=== PATIENT | female | born 1970 | race Two or more races ===

== ENCOUNTER → 2017-07-08 | Outpatient (CLI) | payer BC ==
--- NOTE | 2017-07-09 00:55 | ECWPNPC ---
PATIENT NAME: WILFREDO AMBROSE : 1970 GENDER: FEMALE VISIT DATE: 07/08/2017 DISCHARGE DATE: 07/08/17 1051 VISIT LOCKED DATE TIME: PHYSICIAN: LOEG SHERIDAN RESOURCE: OLEG SHERIDAN HISTORY OF PRESENT ILLNESS NEW PATIENT CONSULT: 46 Y/O FEMALE REFERRED BY DR. PALMER FOR PERSISTENT RIGHT BIKINI LINE INCISIONAL PAIN SINCE HYSTERECTOMY AUGUST 2016.DESCRIBES PAIN INTERMITTENT BURNING AND STABBING PAIN.PAIN IS AGGREVATED BY BENDING OR GOING TO STANDING POSITION AFTER SITTING.PATIENT HAS HAD ADVERSE RECTIONS TO PAIN MEDICATION AND WOULD LIKE TO AVOID MEDICATION TRIALS.REPORTS 15#WEIGHT GAIN SINCE SURGERY.REPORTS POOR ACTIVITY TOLERANCE DUE TO PAIN.REPORTS NORMAL BOWEL MOVEMENTS AND URINATION.NO RECENT FEVER OR ILLNESS. WHEN DID YOUR PAIN FIRST START? . BRIEFLY DESCRIBE HOW YOUR PAIN STARTED? . HOW DOES YOUR PAIN CHANGE WITH TIME? . DOES YOUR PAIN AWAKEN YOU FROM SLEEP? . HOW MANY HOURS OF SLEEP DO YOU NORMALLY GET? . ANY DIAGNOSTIC TESTING? . FACILITY WHERE TESTS WERE DONE? ____. PAIN TREATMENT TREATMENT YES CANCER HAVE YOU EVER HAD ANY TYPE OF CANCER?NO NO. PAIN SCREENING: PATIENT HAS A COMPLAINT OF ACUTE OR CHRONIC PAIN :YES FALL RISK SCREENING: SCREENING :NO FALLS IN THE PAST YEAR FRY INVENTORY: QUESTIONNAIRE ASSESSEDTBD SCORE VALUE CALCULATED TBD CURRENT MEDICATIONS TAKING HYDROCHLOROTHIAZIDE 25 MG TABLET 1 TABLET IN THE MORNING ORALLY ONCE A DAY TAKING LEXAPRO 5 MG TABLET 2 TABLETS ORALLY ONCE A DAY TAKING CALCIUM + D3 600-800 MG-UNIT TABLET 1 TABLET WITH A MEAL ORALLY ONCE A DAY TAKING ESTRADIOL 2 MG TABLET 1 TABLET ORALLY ONCE A DAY TAKING LISINOPRIL 5 MG TABLET 1 TABLET ORALLY ONCE A DAY TAKING TYLENOL 325 MG TABLET 2 TABLETS NEEDED ORALLY EVERY 6 HRS TAKING IBUPROFEN 200 MG TABLET 1 TABLET WITH FOOD OR MILK NEEDED ORALLY EVERY 6 HRS MEDICATION LIST REVIEWED AND RECONCILED WITH THE PATIENT PAST MEDICAL HISTORY HTN ANXIETY ALLERGIES VICODIN: HALLUCINATION PERCOCET: HALLUCINATIONS SURGICAL HISTORY TONSILS 2006 ABDOMINAL HYSTERECTOMY 08/2016 FAMILY HISTORY FATHER: ALIVE, DIAGNOSED WITH HYPERTENSION, CANCER, OTHER MOTHER: ALIVE SIBLINGS: , DIAGNOSED WITH HEART DISEASE SON(S): ALIVE DAUGHTER(S): ALIVE FATHER KIDNEY FAILURE-DIALYSIS BROTHER HAD CHF AND WENT SEPTIC AT 49. 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 DIET: REGULAR. EXERCISE: DAILY, WALKS "SHATEVER I CAN". MARITAL STATUS: . OTHERS AT HOME: SPOUSE, CHILDREN. PETS: DOG AND 2 CATS. SIKHISM SIKHISM CONGREGATIONAL LANGUAGE LANGUAGES SPOKEN:[place] EDUCATION LEVEL OF EDUCATION:HIGH SCHOOL PAIN CLINIC PFS, CLERGY, PUBLIC HEALTH REFERRALS PFS REFERRAL NEEDED?NO CLERGY REFERRAL NEEDED?NO PUBLIC HEALTH REFERRAL NEEDED?NO WAS THE PROVIDER NOTIFIED OF ANY PERTINENT INFO?NO HAS THE PATIENT BEEN EDUCATED REGARDING HIS/HER PLAN OF CARE?YES HAS THE PATIENT BEEN EDUCATED REGARDING PAIN, THE RISK FOR PAIN, THE IMPORTANCE OF EFFECTIVE PAIN MANAGEMENT, AND THE PAIN ASSESSMENT PROCESS?YES PATIENT: ____. ADVANCE DIRECTIVES HEALTH CARE PROXY?NO HOUSING: OWNS HOME. HOSPITALIZATION/MAJOR DIAGNOSTIC PROCEDURE CHILD [id number] REVIEW OF SYSTEMS REVIEWED BY: PROVIDER: OLEG ALVARENGA . CONSTITUTIONAL: ANY CHANGE IN YOUR MEDICAL CONDITION? NO . CHILLS NO . FEVER NO . INFECTION: DO YOU HAVE NEW INFECTIONS? NO . DO YOU HAVE HISTORY OF MRSA? NO . MUSCULOSKELETAL: ANY NEW PATTERNS OF PAIN OR NUMBNESS? NO . SYTEMIC LUPUS NO . GASTROENTEROLOGY: ANY NEW CHANGE IN BOWEL CONTROL? NO . BARRETTS ESOPHAGUS NO . CIRRHOSIS NO . HEPATITIS NO . LIVER FAILURE NO . ACID REFLUX NO . UNEXPLAINED WEIGHT LOSS NO . GENITOURINARY: ANY NEW CHANGE IN BLADDER CONTROL? NO . IS THERE A CHANCE YOU COULD BE ? NO . HEMATOLOGY/LYMPH: DO YOU TAKE ANY BLOOD THINNERS? (FOR EXAMPLE- COUMADIN, PLAVIX, AGGRENOX, PLATEL, PRADAXA, OR XARELTO) NO . WHEN WAS YOUR LAST DOSE? DATE: TIME: . LOW PLATELET COUNT NO . SICKLE CELL DISEASE NO . VON WILLIEBRANDS NO . FACTOR V LEIDEN NO . THALLASEMIA NO . ANEMIA NO . EASY BRUISING NO . NEUROLOGY: HAVE YOU FALLEN IN THE PAST 6 MONTHS? NO . ANY NEW EXTREMITY NUMBNESS OR WEAKNESS? NO . HEAD INJURY NO . DEMENTIA NO . CEREBRAL PALSY NO . MULTIPLE SCLEROSIS NO . DIZZINESS NO . HEADACHE NO . STROKES NO . VERTIGO NO . CARDIOLOGY: DO YOU HAVE A PACEMAKER OR DEFIBRILLATOR? NO . ANGINA NO . HEART ATTACK NO . HEART SURGERY NO . CONGESTIVE HEART FAILURE/FLUID OVERLOAD NO . CHEST PAIN NO . HIGH BLOOD PRESSURE NO . IRREGULAR HEART BEAT NO . RESPIRATORY: HAVE YOU BEEN SICK IN THE PAST WEEK? NO . FEVER NO . FLU LIKE SYMPTOMS? NO . CPAP NO . BYPAP NO . ASTHMA NO . EMPHYSEMA NO . CHRONIC LUNG DISEASES NO . SHORTNESS OF BREATH ON EXERTION NO . DO YOU USE ANY TYPE OF TOBACCO (SMOKE, SMOKELESS, CHEW)? NO . COUGH NO . SNORING NO . INTEGUMENTARY: DO YOU HAVE ANY RASHES OR OPEN SORES? NO . ALLERGIC/IMMUNO: ARE YOU ALLERGIC TO SHELLFISH OR IV DYE? NO . ANY NEW ALLERGIES? NO . PSYCHIATRIC: DO YOU HAVE THOUGHTS OF HURTING YOURSELF OR SOMEONE ELSE? NO . ARE YOU ABUSED, NEGLECTED, OR IN AN UNSAFE ENVIRONMENT? NO . ENDOCRINOLOGY: ARE YOU DIABETIC? NO . THYROID DISORDER NO . OTHER: DO YOU NEED ANY PRESCRIPTIONS? NO . IF YES, PLEASE LIST: ____ . ANY NEW PROBLEMS WITH YOUR MEDICATIONS? NO . WHEN DID YOU LAST EAT? ____ . WHEN DID YOU LAST DRINK? ____ . WHAT DID YOU LAST DRINK? ____ . NAME OF PERSON DRIVING YOU HOME? ____ . DO YOU HAVE ANY OTHER QUESTIONS OR CONCERNS NO . VITAL SIGNS WT 229.2 LBS, HT 62 IN, BMI 41.92 INDEX, BP 162/93 MM HG, HR 70 /MIN, RR 16 /MIN, TEMP 97.9 F, OXYGEN SAT % 97%, NA INITIALS SC 10:04. EXAMINATION GENERAL EXAMINATION: GENERAL APPEARANCE:COMFORTABLE. PSYCHAFFECT NORMAL. NECK:TRACHEA MIDLINE. NO CERVICAL OR SUPRACLAVICULAR LYMPHADENOPATHY NOTED. LUNGS:LUNG OSBORN ARE CLEAR TO AUSCULTATION BILATERALLY. GOOD MOVEMENT OF AIR. HEART:S1, S2 IN A REGULAR RATE AND RHYTHM. NO SIGNIFICANT MURMURS, RUBS OR GALLOPS NOTED. ABDOMEN:OBESE,SOFT NONTENDER X4 QUADS. BIKINI LINE INCION-WELL HEALED.RIGHT SIDE OF THIS INCISION TOWARDS MIDLINE MILDLY TENDER WITH DEEP PALPATION.. 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 PROCEDURE CODES FA211 ESTABILISHED PATIENT [facility] FACILITY CHARGE DISPOSITION & COMMUNICATION FOLLOW UP 2WK POST (REASON: SCAR NEUROMA INJECTION/ABDOMINAL) ELECTRONICALLY SIGNED BY COLETTE BEAL ON 07/08/2017 AT 12:58 PM EDT DISCLAIMER : THIS IS A VISIT SUMMARY EXTRACTED FROM THE [employer] CHART. IT IS NOT A COPY OF THE [employer] PROGRESS NOTE. BONNIE
== END ==
LOC: M PAIN 09:45
PROVIDERS: ATTEND Nurse Practitioner Family
DX: G89.29 Other chronic pain (principal); D36.15 Benign neoplasm of peripheral nerves and autonomic nervous system of abdomen; I10 Essential (primary) hypertension; F41.9 Anxiety disorder, unspecified; Z88.5 Allergy status to narcotic agent; Z79.899 Other long term (current) drug therapy

== ENCOUNTER → 2017-07-29 | Outpatient (CLI) | payer BC ==
[~2017-07-29] MED LIST: BUPIVACAINE HCL 0.25% 10 ML VIAL As Ordered ONE; BUPIVACAINE HCL 0.25% 30 ML VIAL As Ordered ONE; TRIAMCINOLONE ACETONIDE SUSP 40 MG/ML VIAL (J3301) As Ordered ONE
--- NOTE | 2017-08-04 23:49 | ECWPNPC ---
PATIENT NAME: WILFREDO AMBROSE : 1970 GENDER: FEMALE VISIT DATE: 07/29/2017 DISCHARGE DATE: 07/29/17 1408 VISIT LOCKED DATE TIME: PHYSICIAN: CHERYL CLEMENT RESOURCE: CHERYL CLEMENT REASON FOR APPOINTMENT 1. SCAR NEUROMA INJECTION/ABDOMINAL CURRENT MEDICATIONS TAKING HYDROCHLOROTHIAZIDE 25 MG TABLET 1 TABLET IN THE MORNING ORALLY ONCE A DAY, NOTES: 07-29-17499 TAKING LEXAPRO 5 MG TABLET 2 TABLETS ORALLY ONCE A DAY, NOTES: 07-29-17499 TAKING CALCIUM + D3 600-800 MG-UNIT TABLET 1 TABLET WITH A MEAL ORALLY ONCE A DAY, NOTES: 07-28-17 TAKING ESTRADIOL 2 MG TABLET 1 TABLET ORALLY ONCE A DAY, NOTES: 07-28-17 TAKING LISINOPRIL 5 MG TABLET 1 TABLET ORALLY ONCE A DAY, NOTES: [id number] TAKING TYLENOL 325 MG TABLET 2 TABLETS NEEDED ORALLY EVERY 6 HRS, NOTES: NONE TAKING IBUPROFEN 200 MG TABLET 1 TABLET WITH FOOD OR MILK NEEDED ORALLY EVERY 6 HRS, NOTES: NONE MEDICATION LIST REVIEWED AND RECONCILED WITH THE PATIENT PAST MEDICAL HISTORY HTN ANXIETY ALLERGIES VICODIN: HALLUCINATION PERCOCET: HALLUCINATIONS SOCIAL HISTORY GENERAL: TOBACCO USE ARE YOU A:NONSMOKER CAFFEINE CAFFEINE USE?NO OCCASIONAL SODA WITH CAFFEINE 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 DIET: REGULAR. EXERCISE: DAILY, WALKS "SHATEVER I CAN". MARITAL STATUS: . OTHERS AT HOME: SPOUSE, CHILDREN. PETS: DOG AND 2 CATS. LATTER-DAY LATTER-DAY LATTER DAY LANGUAGE LANGUAGES SPOKEN:[place] EDUCATION LEVEL OF EDUCATION:HIGH SCHOOL PAIN CLINIC PFS, CLERGY, PUBLIC HEALTH REFERRALS PFS REFERRAL NEEDED?NO CLERGY REFERRAL NEEDED?NO PUBLIC HEALTH REFERRAL NEEDED?NO WAS THE PROVIDER NOTIFIED OF ANY PERTINENT INFO?NO HAS THE PATIENT BEEN EDUCATED REGARDING HIS/HER PLAN OF CARE?YES HAS THE PATIENT BEEN EDUCATED REGARDING PAIN, THE RISK FOR PAIN, THE IMPORTANCE OF EFFECTIVE PAIN MANAGEMENT, AND THE PAIN ASSESSMENT PROCESS?YES PATIENT: ____. ADVANCE DIRECTIVES HEALTH CARE PROXY?NO HOUSING: OWNS HOME. VITAL SIGNS WT 227 LBS, HT 62 IN, BMI 41.51 INDEX, BP 146/89 MM HG, HR 66 /MIN, RR 16 /MIN, TEMP 97.5 F, OXYGEN SAT % 97%, NA INITIALS SC 11:25, REVIEWED BY: BOBBI. ASSESSMENTS SCAR CONDITIONS AND FIBROSIS OF SKIN - L90.5 (PRIMARY) TREATMENT OTHERS NOTES: PRE PROCEDURE DIAGNOSIS: SCAR NEUROMA AT RIGHT LOWER ABDOMINAL AREA POST PROCEDURE DIAGNOSIS: SCAR NEUROMA AT RIGHT LOWER ABDOMINAL AREA PROCEDURE: INJECTION AT THE RIGHT LOWER ABDOMINAL AREA SCAR SURGEON: DR. CHERYL CLEMENT. BUILDING SERVICES ENGINEER: NONE. ANESTHESIA: LOCAL. PRE PROCEDURE NOTE THE PATIENT HAS A HISTORY OF CHRONIC PAIN AT THE RIGHT LOWER ABDOMINAL AREA. I EVALUATED THE PATIENT AND REVIEWED THE CHART. I WENT OVER THE RISKS, ALTERNATIVES, AND BENEFITS ASSOCIATED WITH THIS PROCEDURE. THE PATIENT WOULD LIKE TO PROCEED AND GIVE CONSENT TO PERFORMED THE PROCEDURE. THE PATIENT DENIES UNEXPLAINABLE WEIGHT LOSS, FEVER, CHILLS, OR NEW CHANGES IN URINARY OR BOWEL CONTROL. DESCRIPTION OF PROCEDURE THE PATIENT WAS BROUGHT TO THE PROCEDURE ROOM AND PLACED IN THE SUPINE POSITION. THE AREA WAS CLEANED WITH CHLOROPREP. THE PROCEDURE WAS DONE USING ASEPTIC STERILE TECHNIQUE. I CHECKED LATERALITY AND THE LEVEL WHERE THE PROCEDURE WAS GOING TO BE PERFORMED WITH THE PATIENT AND THE SUPPORTING STAFF AT THE MOMENT OF THE TIME OUT IN THE PROCEDURE ROOM. USING A 25-GAUGE NEEDLE, RIGHT LOWER ABDOMINAL AREA AT THE SCAR AREA WITH A TOTAL OF 40 ML OF BUPIVACAINE 0.25% AND KENALOG 40 MG. THERE WAS NO EVIDENCE OF BLOOD, PARESTHESIA OR CEREBROSPINAL FLUID DURING THE PROCEDURE. THE PATIENT WAS SENT TO THE RECOVERY ROOM. THE PATIENT WAS MOVING THE EXTREMITIES AND DOING WELL. THERE WAS NO COMPLICATION DURING THE PROCEDURE. POST PROCEDURE NOTE THE PATIENT WILL BE SEEN IN A FOLLOW UP IN THE NEXT FEW WEEKS. INSTRUCTIONS WERE GIVEN, QUESTIONS WERE ANSWERED, AND THE PATIENT EXPRESSED UNDERSTANDING AND AGREES WITH THE PLAN.I, TWILA PHAM, DOCUMENTED THE ABOVE INFORMATION ACTING A SCRIBE FOR DR. CLEMENT. I HAVE REVIEWED THE ABOVE DOCUMENT, WRITTEN BY TWILA BLACKMON AND I VERIFY THAT IT IS ACCURATE. PROCEDURE CODES 98524 INJECT SKIN LESIONS </W 7, MODIFIERS: RT DISPOSITION & COMMUNICATION FOLLOW UP 3 WEEKS ELECTRONICALLY SIGNED BY CHERYL CLEMENT MD ON 08/04/2017 AT 01:33 PM EDT DISCLAIMER : THIS IS A VISIT SUMMARY EXTRACTED FROM THE [employer] CHART. IT IS NOT A COPY OF THE [employer] PROGRESS NOTE. [facility]
== END | disposition home or self-care (01) ==
LOC: M PAIN 11:30
PROVIDERS: ATTEND Anesthesiology
DX: G89.29 Other chronic pain (principal); L90.5 Scar conditions and fibrosis of skin; I10 Essential (primary) hypertension; F41.9 Anxiety disorder, unspecified; Z79.899 Other long term (current) drug therapy; Z88.5 Allergy status to narcotic agent
CPT/HCPCS: 11900; J3301

== ENCOUNTER → 2017-08-26 | Outpatient (CLI) | payer BC ==
--- NOTE | 2017-09-11 00:58 | ECWPNPC ---
PATIENT NAME: WILFREDO AMBROSE : 1970 GENDER: FEMALE VISIT DATE: 08/26/2017 DISCHARGE DATE: 08/26/17 1023 VISIT LOCKED DATE TIME: PHYSICIAN: OLEG SHERIDAN RESOURCE: OLEG SHERIDAN REASON FOR APPOINTMENT 1. POST PROC HISTORY OF PRESENT ILLNESS HISTORY OF PRESENT ILLNESS: HERE FOR POST PROCEDURE F/U.HAD RIGHT LOWER QUADRANT SCAR TPI ON 07-29-17.REPORTS IMPROVEMENT FOR 7 DAYS AT >50% BUT PAIN IS RETURNING.RATING PAIN VAS 2/10.DR. CLEMENT HAS SUGGESTED AN ULTRASOUND GUIDED SCAR INJECTION. PAIN THE PATIENT DESCRIBES THE PAIN... FALL RISK SCREENING: SCREENING :NO FALLS IN THE PAST YEAR CURRENT MEDICATIONS TAKING HYDROCHLOROTHIAZIDE 25 MG TABLET 1 TABLET IN THE MORNING ORALLY ONCE A DAY TAKING LEXAPRO 5 MG TABLET 2 TABLETS ORALLY ONCE A DAY TAKING CALCIUM + D3 600-800 MG-UNIT TABLET 1 TABLET WITH A MEAL ORALLY ONCE A DAY TAKING ESTRADIOL 2 MG TABLET 1 TABLET ORALLY ONCE A DAY TAKING LISINOPRIL 5 MG TABLET 1 TABLET ORALLY ONCE A DAY TAKING TYLENOL 325 MG TABLET 2 TABLETS NEEDED ORALLY EVERY 6 HRS TAKING IBUPROFEN 200 MG TABLET 1 TABLET WITH FOOD OR MILK NEEDED ORALLY EVERY 6 HRS MEDICATION LIST REVIEWED AND RECONCILED WITH THE PATIENT PAST MEDICAL HISTORY HTN ANXIETY ALLERGIES VICODIN: HALLUCINATION PERCOCET: HALLUCINATIONS SURGICAL HISTORY TONSILS 2006 ABDOMINAL HYSTERECTOMY 08/2016 SOCIAL HISTORY GENERAL: TOBACCO USE ARE YOU A:NONSMOKER CAFFEINE CAFFEINE USE?NO OCCASIONAL SODA WITH CAFFEINE 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 DIET: REGULAR. EXERCISE: DAILY, WALKS "SHATEVER I CAN". MARITAL STATUS: . OTHERS AT HOME: SPOUSE, CHILDREN. PETS: DOG AND 2 CATS. EPISCOPALIAN EPISCOPALIAN TEMPLE LANGUAGE LANGUAGES SPOKEN:[place] EDUCATION LEVEL OF EDUCATION:HIGH SCHOOL PAIN CLINIC PFS, CLERGY, PUBLIC HEALTH REFERRALS PFS REFERRAL NEEDED?NO CLERGY REFERRAL NEEDED?NO PUBLIC HEALTH REFERRAL NEEDED?NO WAS THE PROVIDER NOTIFIED OF ANY PERTINENT INFO?NO HAS THE PATIENT BEEN EDUCATED REGARDING HIS/HER PLAN OF CARE?YES HAS THE PATIENT BEEN EDUCATED REGARDING PAIN, THE RISK FOR PAIN, THE IMPORTANCE OF EFFECTIVE PAIN MANAGEMENT, AND THE PAIN ASSESSMENT PROCESS?YES PATIENT: ____. ADVANCE DIRECTIVES HEALTH CARE PROXY?NO HOUSING: OWNS HOME. HOSPITALIZATION/MAJOR DIAGNOSTIC PROCEDURE CHILD [id number] REVIEW OF SYSTEMS REVIEWED BY: PROVIDER: OLEG ALVARENGA . CONSTITUTIONAL: ANY CHANGE IN YOUR MEDICAL CONDITION? NO . CHILLS NO . FEVER NO . INFECTION: DO YOU HAVE NEW INFECTIONS? NO . DO YOU HAVE HISTORY OF MRSA? NO . MUSCULOSKELETAL: ANY NEW PATTERNS OF PAIN OR NUMBNESS? NO, PT STATES RIGHT LOW ABD SCAR INJECTION DONE 07/29/17. PRE PROCEDURE PAIN WAS 2-3/10, POST PROCEDURE PAIN WAS 0/10. TODAY PAIN IS 2/10. PT STATES PAIN IS LESS SEVERE THAN BEFORE INJECT . GASTROENTEROLOGY: ANY NEW CHANGE IN BOWEL CONTROL? NO . GENITOURINARY: ANY NEW CHANGE IN BLADDER CONTROL? NO . IS THERE A CHANCE YOU COULD BE ? NO . HEMATOLOGY/LYMPH: DO YOU TAKE ANY BLOOD THINNERS? (FOR EXAMPLE- COUMADIN, PLAVIX, AGGRENOX, PLATEL, PRADAXA, OR XARELTO) NO . WHEN WAS YOUR LAST DOSE? DATE: TIME: . NEUROLOGY: HAVE YOU FALLEN IN THE PAST 6 MONTHS? NO . ANY NEW EXTREMITY NUMBNESS OR WEAKNESS? NO . CARDIOLOGY: DO YOU HAVE A PACEMAKER OR DEFIBRILLATOR? NO . RESPIRATORY: HAVE YOU BEEN SICK IN THE PAST WEEK? NO . FEVER NO . FLU LIKE SYMPTOMS? NO . COUGH NO . INTEGUMENTARY: DO YOU HAVE ANY RASHES OR OPEN SORES? NO . ALLERGIC/IMMUNO: ARE YOU ALLERGIC TO SHELLFISH OR IV DYE? NO . ANY NEW ALLERGIES? NO . PSYCHIATRIC: DO YOU HAVE THOUGHTS OF HURTING YOURSELF OR SOMEONE ELSE? NO . ARE YOU ABUSED, NEGLECTED, OR IN AN UNSAFE ENVIRONMENT? NO . ENDOCRINOLOGY: ARE YOU DIABETIC? NO . OTHER: DO YOU NEED ANY PRESCRIPTIONS? NO . IF YES, PLEASE LIST: ____ . ANY NEW PROBLEMS WITH YOUR MEDICATIONS? NO . WHEN DID YOU LAST EAT? ____ . WHEN DID YOU LAST DRINK? ____ . WHAT DID YOU LAST DRINK? ____ . NAME OF PERSON DRIVING YOU HOME? ____ . DO YOU HAVE ANY OTHER QUESTIONS OR CONCERNS NO . VITAL SIGNS WT 223.0 LBS, HT 62 IN, BMI 40.78 INDEX, BP 141/78 MM HG, HR 68 /MIN, RR 16 /MIN, TEMP 97.2 F, OXYGEN SAT % 96%, NA INITIALS TL 0943, REVIEWED BY: EM. EXAMINATION GENERAL EXAMINATION: GENERAL APPEARANCE:COMFORTABLE. PSYCHAFFECT NORMAL. NECK:TRACHEA MIDLINE. NO CERVICAL OR SUPRACLAVICULAR LYMPHADENOPATHY NOTED. LUNGS:LUNG OSBORN ARE CLEAR TO AUSCULTATION BILATERALLY. GOOD MOVEMENT OF AIR. HEART:S1, S2 IN A REGULAR RATE AND RHYTHM. NO SIGNIFICANT MURMURS, RUBS OR GALLOPS NOTED. ABDOMEN:OBESE,SOFT NONTENDER X4 QUADS. BIKINI LINE INCION-WELL HEALED.RIGHT SIDE OF THIS INCISION TOWARDS MIDLINE MILDLY TENDER WITH DEEP PALPATION.. 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 SCAR INJ. PROCEDURE CODES FA211 ESTABILISHED PATIENT [facility] CHARGE DISPOSITION & COMMUNICATION FOLLOW UP 2WK POST (REASON: US GUIDED ABD. SCAR INJ.) ELECTRONICALLY SIGNED BY COLETTE BEAL ON 09/09/2017 AT 07:54 PM EST DISCLAIMER : THIS IS A VISIT SUMMARY EXTRACTED FROM THE [employer] CHART. IT IS NOT A COPY OF THE [employer] PROGRESS NOTE. BONNIE
== END ==
LOC: M PAIN 09:30
PROVIDERS: ATTEND Nurse Practitioner Family
DX: G89.29 Other chronic pain (principal); D36.15 Benign neoplasm of peripheral nerves and autonomic nervous system of abdomen; I10 Essential (primary) hypertension; F41.9 Anxiety disorder, unspecified; Z79.899 Other long term (current) drug therapy; Z88.5 Allergy status to narcotic agent

== ENCOUNTER → 2017-09-26 | Outpatient (CLI) | payer BC ==
[~2017-09-26] MED LIST changes: -BUPIVACAINE HCL 0.25% 10 ML VIAL As Ordered ONE; +BUPIVACAINE HCL 0.25% 30 ML VIAL As Ordered; -BUPIVACAINE HCL 0.25% 30 ML VIAL As Ordered ONE; +ISOVUE-M 300 61% 15ML VIAL (Q9967) As Ordered; +LIDOCAINE 1% SDV INJ 30 ML VIAL As Ordered; +TRIAMCINOLONE ACETONIDE SUSP 40 MG/ML VIAL (J3301) As Ordered; -TRIAMCINOLONE ACETONIDE SUSP 40 MG/ML VIAL (J3301) As Ordered ONE; +diazePAM 5 MG TAB As Ordered
== END ==
LOC: M PAIN 08:30
DX: G89.29 Other chronic pain (principal); L90.5 Scar conditions and fibrosis of skin; I10 Essential (primary) hypertension; Z79.899 Other long term (current) drug therapy; F41.9 Anxiety disorder, unspecified; Z88.5 Allergy status to narcotic agent
CPT/HCPCS: J3301

== ENCOUNTER → 2017-10-18 | Outpatient (CLI) | payer BC | LOC: M PAIN 10:00 | DX: D36.15 Benign neoplasm of peripheral nerves and autonomic nervous system of abdomen (principal); I10 Essential (primary) hypertension; F41.9 Anxiety disorder, unspecified; Z79.899 Other long term (current) drug therapy; Z88.5 Allergy status to narcotic agent | CPT/HCPCS: G0463 ==